=== PATIENT | female | born 1990 | race Caucasian/White ===

== ENCOUNTER → 2016-03-22 | Outpatient (CLI) | payer OTHER ==
[~2016-03-22] MED LIST: CEPH500C2 PO; FLUO20CA35 PO; MELA1TAB22 PO; MELA1TAB54 PO; MULT-240 PO; NAPR1TAB9 PO
--- NOTE | 2016-03-22 12:21 | DIAGNOSTIC IMAGING REPORT ---
DOUBLE CONTRAST UPPER GI SERIES AND SMALL BOWEL FOLLOW-THROUGH CLINICAL HISTORY: Nausea. Regurgitation. Gas pain. COMPARISON STUDY: No priors. TECHNIQUE: An abdominal manager android radiograph was performed. A standard air contrast upper GI series was then performed. Spot images of the esophagus and stomach were obtained in multiple obliquities with upright and prone. The patient then consumed several of thin barium and a small follow-through was performed. Overhead radiographs and spot compression images were obtained. FINDINGS: The patient swallowed barium without difficulty. The esophagus is structurally normal without evidence of intrinsic or extrinsic mass. The esophageal mucosal pattern is normal. No gastroesophageal reflux was elicited by having the patient performed the Valsalva maneuver. The gastroesophageal junction distends normally. The stomach is normal in configuration and demonstrates normal distensibility. No mass or ulceration is identified. There was no evidence of gastritis. The duodenal bulb and sweep are unremarkable. The abdominal manager android radiograph shows a nonobstructed abdominal bowel gas pattern. There is rectosigmoid fecal retention. No evidence of intraperitoneal free air is seen. There are no abnormal abdominal calcifications. The bony structures appear intact. On the small bowel follow-through, there is normal transit time with contrast identified in the colon at 50 minutes. The small bowel mucosal pattern is normal. There is no evidence of stricture or mass. The distal/terminal ileum are normal in appearance on the spot compression views. Fluoroscopy time: 2.4 minutes. Fluoroscopic images: 25 IMPRESSION: Unremarkable fluoroscopic upper GI series and small bowel follow-through. Electronically signed by: Adrian Miranda M.D. 03/22/2016 12:19 PM Dictated Date/Time: 03/22/2016 12:18 PM
== END | disposition home or self-care (01) ==
LOC: C.RAD 10:13
PROVIDERS: ATTEND Internal Medicine Gastroenterology
DX: R11.2 Nausea with vomiting, unspecified (principal); R14.0 Abdominal distension (gaseous)

== ENCOUNTER 2016-10-18 14:18 | Emergency (ER) | payer OTHER ==
[~2016-10-18] VITALS: Ht 170.2 cm; Wt 56.3 kg
[2016-10-18 14:22] VITALS: TEMP 36.7; Ht 170.2 cm; Wt 56.3 kg
[2016-10-18] MEDS ORDERED: ADENOSINE IV SOLN 3 MG/ML 2 ML VIAL ONE ×2 (14:52→14:56)
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
[2016-10-18] MEDS ORDERED: LORAZEPAM 2 MG/ML 1 ML VIAL ONE (14:57)
[2016-10-18 15:02] VITALS: O2SAT 100
[2016-10-18] MEDS ORDERED: METOPROLOL TARTRATE 1 MG/ML VIAL ONE (15:05)
[2016-10-18] MEDS ORDERED: SODIUM CHLORIDE 0.9% 500ML 500 ML IV STA (15:08)
[2016-10-18] MEDS ORDERED: METOPROLOL TARTRATE 1 MG/ML VIAL IV STA (15:08)
[2016-10-18] MEDS ORDERED: FLUO20CA35 PO (15:15)
[2016-10-18] MEDS ORDERED: NAPR1TAB9 PO (15:15)
[2016-10-18] MEDS ORDERED: MELA1TAB22 PO (15:15)
[2016-10-18 15:24] LABS: ALT/SGPT 16 U/L (12-78); AST/SGOT 14 U/L (15-37); BLOOD UREA NITROGEN 10 mg/dl (7-18); BUN/CREATININE RATIO 11.5 (10-20); CALCIUM 9.3 mg/dl (8.5-10.1); CARBON DIOXIDE 24 mmol/L (21-32); CHLORIDE 109 mmol/L (98-107); CREATININE 0.85 mg/dl (0.60-1.20); GLUCOSE 98 mg/dl (70-99); MAGNESIUM 2.3 mg/dl (1.8-2.4); POTASSIUM 3.3 mmol/L (3.5-5.1); SODIUM 141 mmol/L (136-145)
[2016-10-18 15:35] LABS: ALKALINE PHOSPHATASE 49 U/L (45-117)
[2016-10-18 15:39] LABS: PREG INTERNAL NEGATIVE QC NEG CLEAR BACKGROUND; PREG INTERNAL POSITIVE QC POS CONTROL LINE
[2016-10-18] MEDS ORDERED: CEPH500C2 PO (15:40)
[2016-10-18] MEDS ORDERED: MELA1TAB54 PO (15:40)
[2016-10-18] MEDS ORDERED: MULT-240 PO (15:40)
--- NOTE | 2016-10-18 15:41 | DIAGNOSTIC IMAGING REPORT ---
CHEST ONE VIEW PORTABLE CLINICAL HISTORY: Tachycardia. Possible cardiomegaly. COMPARISON STUDY: No previous studies for comparison. FINDINGS: No pneumothorax or pleural effusion is present. There is no evidence of pulmonary edema. Cardiomediastinal silhouette is normal. Pulmonary vascularity is normal. There may be bilateral cervical ribs. IMPRESSION: No acute cardiopulmonary findings. Normal cardiac size. Electronically signed by: Carlos Spring M.D. 10/18/2016 3:39 PM Dictated Date/Time: 10/18/2016 3:38 PM
[2016-10-18 16:08] LABS: BASO % 0.2 %; BASO ABS # 0.02 K/uL (0-0.2); COMPLETE YES; EOS % 0.6 %; HEMATOCRIT 37.7 % (37-47); IG% 0.3 %; LYMPH % 19.1 %; LYMPH ABS # 1.94 K/uL (1.2-3.4); MEAN CELL VOLUME 84.3 fL (80-100); MEAN CORPUSCULAR HGB CONC 35.5 g/dl (32-36); MEAN PLATELET VOLUME 10.8 fL (7.4-10.4); MONO % 7.2 %; NEUT % 72.6 %; PLATELET COUNT 251 K/uL (130-400); RED BLOOD COUNT 4.47 M/uL (4.2-5.4); WHITE BLOOD COUNT 10.16 K/uL (4.8-10.8)
[2016-10-18 16:34] VITALS: BP 112/70; PULSE 83; O2SAT 98
== END 2016-10-18 16:52 | disposition home or self-care (01) ==
LOC: C.EDB 14:20 → C.EDA 16:52
DX: I47.1 Supraventricular tachycardia (principal); F41.9 Anxiety disorder, unspecified; Z79.899 Other long term (current) drug therapy

== ENCOUNTER 2017-04-16 13:40 | Emergency (ER) | payer OTHER ==
[~2017-04-16] VITALS: Ht 170.2 cm; Wt 57.2 kg
[~2017-04-16 13:40] MED LIST changes: -MELA1TAB22 PO
[2017-04-16 13:44] VITALS: TEMP 36.8; O2SAT 100; Ht 170.2 cm; Wt 57.2 kg
[2017-04-16 14:15] LABS: BASO % 0.1 %; BASO ABS # 0.01 K/uL (0-0.2); EOS % 0.7 %; EOS ABS # 0.07 K/uL (0-0.5); HEMATOCRIT 36.8 % (37-47); HEMOGLOBIN 13.1 g/dL (12.0-16.0); IG# 0.02 K/uL (0.00-0.02); LYMPH % 8.6 %; LYMPH ABS # 0.82 K/uL (1.2-3.4); MEAN CORPUSCULAR HEMOGLOBIN 30.3 pg (25-34); MEAN CORPUSCULAR HGB CONC 35.6 g/dl (32-36); MEAN PLATELET VOLUME 10.2 fL (7.4-10.4); MONO % 9.5 %; MONO ABS # 0.91 K/uL (0.11-0.59); NEUT % 80.9 %; PLATELET COUNT 182 K/uL (130-400); RED CELL DISTRIBUTION WIDTH CV 12.3 % (11.5-14.5); RED CELL DISTRIBUTION WIDTH SD 38.3 fL (36.4-46.3); WHITE BLOOD COUNT 9.53 K/uL (4.8-10.8)
[2017-04-16 14:31] LABS: ALBUMIN 4.1 gm/dl (3.4-5.0); ALT/SGPT 28 U/L (12-78); AST/SGOT 20 U/L (15-37); BLOOD UREA NITROGEN 17 mg/dl (7-18); CALCIUM 9.2 mg/dl (8.5-10.1); CARBON DIOXIDE 25 mmol/L (21-32); CREATININE 0.82 mg/dl (0.60-1.20); GLUCOSE 99 mg/dl (70-99); POTASSIUM 3.4 mmol/L (3.5-5.1); SODIUM 137 mmol/L (136-145)
[2017-04-16] MEDS ORDERED: SODIUM CHLORIDE 0.9% 1000ML 1,000 ML IV STA (14:40)
[2017-04-16 14:42] LABS: ALKALINE PHOSPHATASE 53 U/L (45-117); CKMB 0.5 ng/ml (0.5-3.6); TOTAL PROTEIN 8.6 gm/dl (6.4-8.2)
--- NOTE | 2017-04-16 14:42 | DIAGNOSTIC IMAGING REPORT ---
CHEST ONE VIEW PORTABLE HISTORY: 26 years-old Female EVALUATE WEAKNESS acute weakness COMPARISON: Chest radiograph 10/18/2016 TECHNIQUE: Portable AP view of the chest FINDINGS: Cardiomediastinal and hilar silhouettes are within normal limits. There is no pneumothorax, pleural effusion, focal airspace consolidation or overt pulmonary edema. The bones of the chest appear grossly intact. Note is made of bilateral cervical ribs. IMPRESSION: No acute process. The above report was generated using voice recognition software. It may contain grammatical, syntax or spelling errors. Electronically signed by: Jesus Dupree M.D. 04/16/2017 2:40 PM Dictated Date/Time: 04/16/2017 2:39 PM
[2017-04-16] MEDS ORDERED: MULT-506 PO (14:57)
[2017-04-16] MEDS ORDERED: BIOT1CAP8 PO (14:57)
[2017-04-16 16:15] VITALS: BP 106/63; PULSE 115
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
== END 2017-04-16 16:40 | disposition home or self-care (01) ==
LOC: C.EDB 13:42
DX: R00.0 Tachycardia, unspecified (principal); F41.9 Anxiety disorder, unspecified; Z79.899 Other long term (current) drug therapy